=== PATIENT | male | born 1995 | race Two or more races ===

== ENCOUNTER 2019-08-01 14:02 | Emergency (ER) | payer OTHER ==
[~2019-08-01] VITALS: Ht 177.8 cm; Wt 87.1 kg
[2019-08-01] MEDS ORDERED: diphenhydrAMINE HCL 50 MG/ML VIAL ONE (14:28)
--- NOTE | 2019-08-01 14:28 | NUR ---
BIBEMPLOYER TO ER BED 1. AAOX 4. NOT IN RESP DISTRESS, BREATHING EVEN AND UNLABORED. AMBULATORY. BROUGHT IN FOR MULTIPLE BEE STING WHILE CUTTING A TREE. NOTED R FACIAL SWELLING WITH JEFFERY ORAL SWEELING, AIRWAY IS PATENT, TALKING IN FULL SENTENCES. LACED ON MONITOR. IV LINE OBTAINED ON R AC 18G. PA AT BEDSIDE FOR EVAL. WILL CONTINUE TO MONITOR
[2019-08-01] MEDS ORDERED: FAMOTIDINE/PF INJ 20 MG/2 ML VIAL IV ONE ×2 (14:29→14:30)
[2019-08-01] MEDS ORDERED: methylPREDNISolone SOD SUCC 125 MG/2ML VIAL ONE (14:29)
[2019-08-01] MEDS ORDERED: diphenhydrAMINE HCL 50 MG/ML VIAL IV ONE (14:30)
[2019-08-01] MEDS ORDERED: methylPREDNISolone SOD SUCC 125 MG/2ML VIAL IV ONE (14:30)
--- NOTE | 2019-08-01 16:03 | NUR ---
PT'S FACIAL MAHAD LIP SWELLING HAVE SUBSISDE. AIRWAY PATENT, NO RESP DISTRESS.
[2019-08-01 16:06] VITALS: BP 121/84
--- NOTE | 2019-08-01 16:06 | NUR ---
Patient discharged to home in stable condition. Written and verbal after care instructions given. Patient verbalizes understanding of instruction. Pt ambulatory with a steady gait
--- NOTE | 2019-08-01 16:06 | NUR ---
IV removed. Catheter intact and site benign. Pressure and 4x4 applied to site. No bleeding noted.
== END 2019-08-01 16:10 | disposition home or self-care (01) ==
LOC: ER 14:04
DX: T78.3XXA Angioneurotic edema, initial encounter (principal)
CPT/HCPCS: 96374; 96375; 99285; J1200; J2930; J3490